=== PATIENT | female | born 1970 ===

== ENCOUNTER 2017-08-11 11:02 | Emergency (ER) | payer OTHER ==
[2017-08-11 11:18] VITALS: RESP 18; TEMP 98; O2SAT 100
[2017-08-11 11:19] VITALS: BMI 26.4
[2017-08-11] MEDS ORDERED: TDAP Vaccine 0.5 mL Syr IM ONE (12:13)
[2017-08-11] MEDS ORDERED: Lidocaine 1% Inj (20ml) ONE (12:49)
--- NOTE | 2017-08-11 13:42 | PCM.PROC ---
Procedures Attestation:: I certify that I have explained the specified Operation(s) or Procedure(s), risks, benefits and reasonable alternatives to the Patient and/or other person responsible. The opportunity was given to ask questions and all questions answered - Laceration lidocaine 1% simple, single layer linear irrigated extensively left lower extremity 4-0 other simple, interrupted Site: lower extremity Side (if applicable): left Description: other ("C" shaped) Depth: simple, single layer Anesthesia used: lidocaine 1% Anesthesia technique: local infiltration Amount (mLs): 6 Pre-repair: irrigated extensively, deep structures intact Skin layer closed with: other (nylon) Size: 4-0 Number of sutures: 10 Technique: simple, interrupted Subcutaneous layer closed with: vicryl Size: 3-0 Number of sutures: 5 Technique: simple, interrupted
--- NOTE | 2017-08-11 14:28 | ED PDOC ---
Arrival/HPI - General Chief Complaint: Lower Extremity Problem/Injury Time Seen by Provider: 08/11/17 12:12 Historian: Patient - History of Present Illness Narrative History of Present Illness (Text): 08/11/17 14:30 47-year-old female presents today with a laceration to the anterior aspect of the left knee. 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 Patient denies numbness weakness or tingling in the extremity. Patient denies fevers or chills. The patient is unsure of her last tetanus shot. No medications have been taken for pain. Patient is complaining of pain that is described as achy/burning sensation over the laceration site. No other complaints Time/Duration: Prior to Arrival Past Medical History - Provider Review Nursing Documentation Reviewed: Yes - Travel History Have you recently traveled outside [place] w/in the past 3 mons?: No - Tetanus Immunization Tetanus Immunization: Unknown - Psychiatric Hx Substance Use: No Family/Social History - Physician Review Nursing Documentation Reviewed: Yes Family/Social History: Unknown Family HX Smoking Status: Never Smoked Hx Alcohol Use: No Hx Substance Use: No Allergies/Home Meds Allergies/Adverse Reactions: Allergies No Known Allergies Allergy (Verified 08/11/17 11:19) Review of Systems - Review of Systems Constitutional: absent: Fatigue, Fevers Respiratory: absent: SOB, Cough Cardiovascular: absent: Chest Pain, Palpitations Gastrointestinal: absent: Abdominal Pain, Nausea, Vomiting Musculoskeletal: Arthralgias. absent: Neck Pain Skin: Laceration Neurological: absent: Headache, Dizziness Psychiatric: absent: Anxiety, Depression Physical Exam Vital Signs Reviewed: Yes Vital Signs Temp Pulse Resp BP Pulse Ox 08/11/17 13:58 69 18 138/74 100 08/11/17 12:48 74 18 142/79 100 08/11/17 11:18 98.0 F 77 18 144/94 H 100 Temperature: Afebrile Blood Pressure: Hypertensive Pulse: Regular Respiratory Rate: Normal Appearance: Positive for: Well-Appearing, Non-Toxic, Comfortable Pain Distress: None Mental Status: Positive for: Alert and Oriented X 3 - Systems Exam Head: Present: Atraumatic Mouth: Present: Moist Mucous Membranes Neck: Present: Normal Range of Motion Respiratory/Chest: Present: Clear to Auscultation, Good Air Exchange. No: Respiratory Distress, Accessory Muscle Use Cardiovascular: Present: Regular Rate and Rhythm, Normal S1, S2. No: Murmurs Lower Extremity: Present: NORMAL PULSES, Normal ROM, Tenderness (left knee; + 6cm C shaped superficial laceration noted over the anterior medial aspect of the knee; no surrounding erythema; minimal edema; no), Swelling, Neurovascularly Intact, Capillary Refill < 2 s. No: CALF TENDERNESS, Erythema, Deformity Neurological: Present: GCS=15, Speech Normal Skin: Present: Warm, Dry, Normal Color Psychiatric: Present: Alert, Oriented x 3 Medical Decision Making ED Course and Treatment: 08/11/17 15:00 Patient is nontoxic well appearing in no distress. Vital signs are stable. Wound irrigated well with high pressure irrigation Tetanus updated Motrin keflex PO xray; no fracture, no FB Laceration repair: 10 nylon and 5 vicryl sutures placed. Laceration performed by Resident dr. Fanny Nieves. Bacitracin and dressing applied knee immobilizer and crutches given for ambulation. Patient was advised to keep the wound clean and dry, apply bacitracin twice daily. Pt was advised to f/u with PMD, take medications as prescribed and return immediately if signs of infection develop or return if any other concerning symptoms develop all information was translated to the patient using parachute rigger discharge door operator # ; [id number] Patient verbalizes understanding of discharge instructions and need for immediate followup. all aspects of this case were discussed the attending of record. Impression: Laceration, knee, knee pain motrin every 6 hours as needed for pain keflex 1 capsule 4 times daily x 7 days Keep wounds clean and dry; apply bacitracin twice daily to affected area follow up with the orthopedist within the next 2 days follow up with the primary care physician within the next 2 days return in 10 days for suture removal return immediately if signs of infection develop; high fevers, increasing pain, redness, swelling or purulent discharge. Return if any other concerning symptoms develop. - RAD Interpretation Radiology Orders: 08/11/17 12:12 KNEE WITH PATELLA LEFT 3 VIEW [RAD] Stat - Medication Orders Current Medication Orders: Discontinued Medications Cephalexin Monohydrate (Keflex) 500 mg PO STAT STA PRN Reason: Protocol Stop: 08/11/17 12:14 Last Admin: 08/11/17 13:38 Dose: 500 mg Tetanus/Reduced Diphtheria/Acell Pertussis (Boostrix Vaccine Inj) 0.5 ml IM .ONCE ONE Stop: 08/11/17 12:14 Last Admin: 08/11/17 13:37 Dose: 0.5 ml Immunization Registry Document 08/11/17 13:37 HI (Rec: 08/11/17 13:37 HI [id number]) Immunization Registry Consent Date 08/11/17 Disposition/Present on Arrival - Present on Arrival Any Indicators Present on Arrival: No History of DVT/PE: No History of Uncontrolled Diabetes: No Urinary Catheter: No History of Decub. Ulcer: No History Surgical Site Infection Following: None - Disposition Have Diagnosis and Disposition been Completed?: Yes Diagnosis: Laceration of knee, Knee pain Disposition: HOME/ ROUTINE Disposition Time: 14:32 Patient Plan: Discharge Condition: GOOD Discharge Instructions (ExitCare): Knee Pain (DC), Laceration Repair With Stitches (DC) Print Language: VIET[place]ESE Additional Instructions: motrin every 6 hours as needed for pain keflex 1 capsule 4 times daily x 7 days Keep wounds clean and dry; apply bacitracin twice daily to affected area follow up with the orthopedist within the next 2 days follow up with the primary care physician within the next 2 days return in 10 days for suture removal return immediately if signs of infection develop; high fevers, increasing pain, redness, swelling or purulent discharge. Return if any other concerning symptoms develop. Prescriptions: Bacitracin OINT 1 applic TP BID #1 tube Cephalexin [Keflex] 500 mg PO QID #28 capsule Ibuprofen [Motrin] 600 mg PO Q6H PRN #20 tab PRN Reason: pain/fever reduction Referrals: Danielle Majano MD [Staff Provider] - Follow up with primary Jagdeep Lorenzo III, MD [Medical Doctor] - Follow up with primary [facility] [place]] - Follow up with primary [facility] [place] [Outside] - Follow up with primary Forms: Weele (Chinese), WORK NOTE
--- NOTE | 2017-08-11 14:52 | RAD ---
PROCEDURE: Left Knee and patella Radiographs. HISTORY: Pain. COMPARISON: None. FINDINGS: BONES: Normal. No fracture. JOINTS: Normal. No osteoarthritis. JOINT EFFUSION: None. OTHER FINDINGS: None. IMPRESSION: Normal radiographs of the left knee.
[2017-08-11 15:21] VITALS: BP 135/69; PULSE 65
== END 2017-08-11 15:50 | disposition home or self-care (01) ==
LOC: ED 11:02
DX: S81.012A Laceration without foreign body, left knee, initial encounter (principal); W27.8XXA Contact with other nonpowered hand tool, initial encounter; Y92.89 Other specified places as the place of occurrence of the external cause; Y99.0 Civilian activity done for income or pay; M25.562 Pain in left knee; Z23 Encounter for immunization

== ENCOUNTER 2017-08-20 09:06 | Emergency (ER) | payer OTHER ==
[2017-08-20 09:24] VITALS: TEMP 98.5; O2SAT 98; BMI 24.0
--- NOTE | 2017-08-20 09:46 | ED PDOC ---
Arrival/HPI - General Chief Complaint: Suture/Staple Removal Time Seen by Provider: 08/20/17 09:37 Historian: Patient - History of Present Illness Narrative History of Present Illness (Text): 08/20/17 09:43 47yo female who present to Emergency department for sutures removal form her left knee. She notes that the sutures was placed here 10days ago. She denies fever, redness, purulent discharge. Past Medical History - Provider Review Nursing Documentation Reviewed: Yes - Infectious Disease Hx of Infectious Diseases: None - Tetanus Immunization Tetanus Immunization: Unknown - Psychiatric Hx Substance Use: No - Anesthesia Hx Anesthesia: No Family/Social History - Physician Review Nursing Documentation Reviewed: Yes Family/Social History: Unknown Family HX Smoking Status: Never Smoked Hx Alcohol Use: No Hx Substance Use: No Allergies/Home Meds Allergies/Adverse Reactions: Allergies No Known Allergies Allergy (Verified 08/11/17 11:19) Review of Systems - Physician Review All systems were reviewed & negative as marked: Yes - Review of Systems Constitutional: Normal Eyes: Normal ENT: Normal Respiratory: Normal Cardiovascular: Normal Gastrointestinal: Normal Genitourinary Female: Normal Musculoskeletal: Normal Skin: Other (Suture removal) Neurological: Normal Endocrine: Normal Hemo/Lymphatic: Normal Psychiatric: Normal Physical Exam Vital Signs Reviewed: Yes Vital Signs Temp Pulse Resp BP Pulse Ox 08/20/17 09:24 98.5 F 78 18 109/70 98 Temperature: Afebrile Blood Pressure: Normal Pulse: Regular Respiratory Rate: Normal Appearance: Positive for: Well-Appearing, Non-Toxic, Comfortable Pain Distress: None Mental Status: Positive for: Alert and Oriented X 3 - Systems Exam Head: Present: Atraumatic, Normocephalic Pupils: Present: PERRL Extroacular Muscles: Present: EOMI Conjunctiva: Present: Normal Mouth: Present: Moist Mucous Membranes Neck: Present: Normal Range of Motion Respiratory/Chest: Present: Clear to Auscultation, Good Air Exchange. No: Respiratory Distress, Accessory Muscle Use Cardiovascular: Present: Regular Rate and Rhythm, Normal S1, S2. No: Murmurs Abdomen: No: Tenderness, Distention, Peritoneal Signs Back: Present: Normal Inspection Upper Extremity: Present: Normal Inspection. No: Cyanosis, Edema Lower Extremity: Present: Normal Inspection. No: Edema Neurological: Present: GCS=15, CN II-XII Intact, Speech Normal Skin: Present: Warm, Dry, Normal Color, Other (10sutures noted in place on left knee). No: Rashes Psychiatric: Present: Alert, Oriented x 3, Normal Insight, Normal Concentration Medical Decision Making ED Course and Treatment: 08/20/17 09:45 Sutures cleaned with betadine. 10sutures removed. Edges appear well approximated. Bacitracine applied and dressed. Disposition/Present on Arrival - Present on Arrival Any Indicators Present on Arrival: No History of DVT/PE: No History of Uncontrolled Diabetes: No Urinary Catheter: No History of Decub. Ulcer: No History Surgical Site Infection Following: None - Disposition Have Diagnosis and Disposition been Completed?: Yes Diagnosis: Visit for suture removal Disposition: HOME/ ROUTINE Disposition Time: 09:50 Patient Plan: Discharge Condition: STABLE Discharge Instructions (ExitCare): Stitches Removal Additional Instructions: Keep wound clean and dry Follow up with your Doctor Return to Emergency department for any new symptoms Referrals: [facility] [place] [Outside] - Follow up with primary
[2017-08-20 09:55] VITALS: BP 110/66; PULSE 74
[2017-08-20 18:53] VITALS: RESP 16
== END 2017-08-20 10:07 | disposition home or self-care (01) ==
LOC: ED 09:06
DX: Z48.02 Encounter for removal of sutures (principal)